=== PATIENT | male | born 1960 | race Caucasian/White ===

== ENCOUNTER 2021-12-10 11:51 | Emergency (ER) | payer OTHER ==
--- NOTE | 2021-12-10 12:08 | ED Physician Documentation ---
History of Present Illness - Stated complaint Stated Complaint: RT RIB PAIN - Additonal information Additional information: 61-year-old male presents emergency department for evaluation of concerns that he may have an occult rib fracture. He reports that 4 days ago he was bending over in his car to peanut picker some trash. He had to lunge hard to pick it up and his right rib came into contact with the armrest. He felt a pop. Initially he did not think much of it but over the last 4 days he has had a lot of pain and is concerned that he has a fracture. He is denying any dyspnea. No hemoptysis. No history of similar in the past. No falls or other trauma. He has not taken anything for pain and declines analgesia today in the ER. He simply wants imaging to confirm or rule out fracture This gentleman is a former smoker. Describes himself as very healthy and as well as being an active competitor and athlete Review of Systems Constitutional: denies: Fever, Chills Throat: reports: Reviewed and negative Cardiac: reports: Other (Right lateral anterior chest wall pain) Respiratory: reports: Reviewed and negative : reports: Reviewed and negative Skin: reports: Reviewed and negative Musculoskeletal: reports: Reviewed and negative Neurologic: reports: Reviewed and negative PD PAST MEDICAL HISTORY - Present Medications Home Medications: Ambulatory Orders Medication Instructions Recorded Confirmed No Known Home Medications 12/10/21 12/10/21 - Allergies Allergies/Adverse Reactions: Allergies Allergy/AdvReac Type Severity Reaction Status Date / Time No Known Drug Allergies Allergy Verified 12/10/21 12:10 PD ED PE NORMAL - General General: Alert and oriented X 3, No acute distress - HEENT HEENT: PERRL - Cardiac Cardiac: RRR, No murmur, Strong equal pulses, Other (Focal tenderness right lower lateral rib wall without crepitus ecchymosis erythema. Room air saturations 100% . Patient able to take full deep breaths) - Respiratory Respiratory: Clear bilaterally Results - Vitals Vitals: Vital Signs - 24 hr 12/10/21 11:54 Temperature 36 C L Heart Rate 57 L Respiratory 16 Rate Blood Pressure 159/92 H O2 Saturation 98 Oxygen O2 Source Room air - Rads (name of study) right ribs with pa chest xr Radiology: Final report received (Normal chest and right ribs) PD MEDICAL DECISION MAKING - ED course Complexity details: considered differential, d/w patient ED course: 61-year-old male presents emergency department for evaluation of multiple days of right lateral and anterior rib wall pain after lunging across his car seat to peanut picker trash. He is concerned that he fractured the rib. On exam tenderness is elicited in the lateral side without crepitus or erythema. No ecchymosis. Room air saturations 100%. Normal full pulmonary excursion. X-ray is without acute findings. I suspect this gentleman has a contusion over occult fracture. Discussed routine conservative care measures as well as emergent return precautions Departure - Departure Disposition: 01 Home, Self Care Clinical Impression: Chest wall contusion Qualifiers: Encounter type: initial encounter Laterality: right Qualified Code(s): S20.211A - Contusion of right front wall of thorax, initial encounter Condition: Stable Record reviewed to determine appropriate education?: Yes Instructions: ED Contusion Vs Minor Fx Rib Comments: Johnny obrien are seen today in the emergency department for pain on the right side of your ribs after lunging across a car seat. The x-ray of your chest is unremarkable. There is nothing obvious to suggest rib fracture or even a punctured lung. I suspect however that you have a contusion in the rib wall. In general you can try taking Tylenol 500 mg with food 2-3 times a day or alternate ibuprofen 600 mg with food 2-3 times a day. If there is a subtle fracture that was missed on x-ray it would not change her management at this time. Typically contusions will improve over 1 to 3 weeks whereas a rib fracture may take 4 to 6 weeks to heal. If at any point you find that you are having worsening pain, difficulty breathing, have bloody sputum or any other emergent concerns do not hesitate to return immediately to the ER for second evaluation.
--- NOTE | 2021-12-10 12:37 | XRAY Report ---
PROCEDURE: Ribs w/PA Chest RT INDICATIONS: ? right anterior/lateral rib fx TECHNIQUE: 2 views of the right ribs were acquired, along with a single view chest. COMPARISON: FINDINGS: Surgical changes and devices: None. Bones and chest wall: No fractures or dislocations. No suspicious bony lesions. Overlying soft tis sues appear unremarkable. Lungs and pleura: No pleural effusions or pneumothorax. Lungs appear clear. Mediastinum: Mediastinal contours appear normal. Heart size is normal. IMPRESSION: Normal chest and right ribs. Reviewed by: Delio Egan on 12/10/2021 12:36 PM PDT Approved by: Delio Egan on 12/10/2021 12:36 PM PDT Station ID: [id number]
[2021-12-10 13:02] VITALS: BP 132/95
== END 2021-12-10 13:05 | disposition home or self-care (01) ==
LOC: ED 11:51
DX: S20.211A Contusion of right front wall of thorax, initial encounter (principal); W22.09XA Striking against other stationary object, initial encounter
CPT/HCPCS: 99282; 99283